=== PATIENT | male | born 1980 | race Caucasian/White ===

== ENCOUNTER 2025-05-18 20:51 | Emergency (ER) | payer BC ==
[~2025-05-18] VITALS: Ht 167.6 cm; Wt 65.0 kg
[2025-05-18 20:57] VITALS: O2SAT 99
[2025-05-18] MEDS: LIDOCAINE HCL 1% 20ML VIAL INFIL NR (21:15)
[2025-05-18] MEDS ORDERED: LIDOCAINE HCL 1% 20ML VIAL INFIL ONE (21:15)
[2025-05-18] MEDS ORDERED: IBUPROFEN 800MG TABLET PO ONE (21:15)
[2025-05-18 22:19] LABS: BG DEOXYHEMOGLOBIN 28.1 % (0.0-5.0)
[2025-05-18 22:37] LABS: BASOPHILS % 0.5 % (0.0-2.0); EOSINOPHILS % 2.2 % (0.0-5.0); HEMATOCRIT. 33.8 % (42.0-52.0); HEMOGLOBIN. 11.3 g/dL (14.0-18.0); LYMPHOCYTES % 15.5 % (20.0-50.0); MEAN PLATELET VOLUME 8.7 fl (7.4-10.4); MONOCYTES % 7.1 % (2.0-8.0); NEUTROPHILS % 74.7 % (40.0-76.0); PLATELET 321 x1000/uL (130-400); RED BLOOD CELL COUNT 3.76 mill/uL (4.7-6.1); RED CELL DISTRIBUTION WIDTH 12.9 % (11.6-14.6)
[2025-05-18 22:52] LABS: CLARITY URINE CLEAR (CLEAR); COLOR URINE YELLOW (YELLOW); GLUCOSE URINE 3+ (NEGATIVE); KETONES URINE NEGATIVE (NEGATIVE); LEUKOCYTE ESTERASE URINE NEGATIVE (NEGATIVE); NITRITE URINE NEGATIVE (NEGATIVE); OCCULT BLOOD URINE 1+ (NEGATIVE); PH URINE 6.0 (4.5-8.0); PROTEIN URINE 3+ (NEGATIVE); SPECIFIC GRAVITY URINE 1.023 (1.005-1.030); UROBILINOGEN URINE 0.2 E.U./dL (0.2-1.0)
[2025-05-18 22:57] LABS: CREATININE 2.2 mg/dL (0.6-1.3); UREA NITROGEN BLOOD 37 mg/dL (9-23)
[2025-05-18 22:58] LABS: TROPONIN I HIGH SENSITIVITY 16 ng/L (3.0-53)
[2025-05-18 22:59] LABS: ASPARTATE AMINOTRANSFERASE 14 IU/L (<34); BILIRUBIN DIRECT < 0.1 mg/dL (<=3.0); BILIRUBIN TOTAL 0.4 mg/dL (0.1-1.0); PROTEIN TOTAL 6.2 g/dL (6.0-8.3)
[2025-05-18] MEDS: INSULIN REGULAR (HUMULIN R) 1000UNITS/10ML VIAL SUBCUT NR (23:00)
[2025-05-18] MEDS: SODIUM CHLORIDE 0.9% 1,000 ML IV ONE ×2 (23:00→23:42)
[2025-05-18] MEDS ORDERED: INSULIN REGULAR (HUMULIN R) 1000UNITS/10ML VIAL SUBCUT ONE (23:00)
[2025-05-18 23:08] LABS: BACTERIA URINE NONE SEEN; SQUAMOUS EPITHELIAL CELL URINE FEW /lpf (RARE/1+); WBC URINE NONE SEEN /hpf (0-2)
[2025-05-18] MEDS: IBUPROFEN 800MG TABLET PO NR (23:42)
[2025-05-19] MEDS ORDERED: TETANUS AND DIPHTHERIA TOX/PF 0.5ML SYR (ADULT) IM ONE (00:15)
[2025-05-19 01:03] VITALS: BP 157/81; PULSE 100; RESP 15; TEMP 36.7; O2SAT 99
[2025-05-19] MEDS: TETANUS, DIPHTHERIA, PERTUSSIS VAC/PF 0.5ML (>10YR OLD) IM ONE (01:05)
== END 2025-05-19 01:12 | disposition home or self-care (01) ==
LOC: ER 21:08 → CMPBEDREQ 05-19 07:47
DX: S01.111A Laceration without foreign body of right eyelid and periocular area, initial encounter (principal); E11.65 Type 2 diabetes mellitus with hyperglycemia; Z79.4 Long term (current) use of insulin; W10.9XXA Fall (on) (from) unspecified stairs and steps, initial encounter; Y93.89 Activity, other specified; Y92.89 Other specified places as the place of occurrence of the external cause; Y99.8 Other external cause status
CPT/HCPCS: 99285; 96360; 70450; 80076; 80048; 81003; 82010; 82962; 83735; 85025; 84484; 36415; 82375; 82803; 12013; 93005; 90715; 90471; J2003; J7030; 90714